=== PATIENT | female | born 1935 | race Caucasian/White ===

== ENCOUNTER → 2018-03-16 | Outpatient (CLI) | payer MEDICARE | END | disposition home or self-care (01) | LOC: CVU 08:42 | PROVIDERS: ATTEND Internal Medicine Cardiovascular Disease | DX: I77.811 Abdominal aortic ectasia (principal); I72.3 Aneurysm of iliac artery; I10 Essential (primary) hypertension; E78.5 Hyperlipidemia, unspecified | CPT/HCPCS: 93306; 93978 ==